=== PATIENT | female | born 1995 | race Caucasian/White ===

== ENCOUNTER 2018-10-22 16:53 | Emergency (ER) | payer BC ==
[2018-10-22 17:10] VITALS: BP 137/66
--- NOTE | 2018-10-22 17:34 | UC ---
Eye Complaint HPI - HPI Summary HPI Summary: Awoke with right eye drainage and redness. Congestion, sore throat and cough as well. Some sinus pain. Does have allergies. - History of Current Complaint Chief Complaint: UCEye Stated Complaint: EYE COMPLAINT Hx Obtained From: Patient Hx Last Menstrual Period: 10/11/18 ?: No Onset/Duration: Sudden Onset, Lasting Days - 1, Worse Since - onset Timing: Constant Severity Initially: Mild Severity Currently: Moderate Pain Intensity: 0 Character: Foreign Body Sensation Aggravating Factor(s): Blinking Associated Signs And Symptoms: Positive: Drainage (Purulent). Negative: Photophobia, Vision Impairment Right, Vision Impairment Left - Risk Factors Penetrating Injury Risk Factor: Negative - Allergies/Home Medications Allergies/Adverse Reactions: Allergies Allergy/AdvReac Type Severity Reaction Status Date / Time Sulfa (Sulfonamide Allergy Hives Verified 10/22/18 17:10 Antibiotics) PMH/Surg Hx/FS Hx/Imm Hx Previously Healthy: Yes Other Respiratory History: Allergic rhinitis - Surgical History Surgical History: Yes Surgery Procedure, Year, and Place: T&A 2004 - Family History Known Family History: Negative: Cardiac Disease - Social History Occupation: Student Lives: Dormitory/Roommates Alcohol Use: Occasionally Substance Use Type: None Smoking Status (MU): Never Smoked Tobacco - Immunization History Most Recent Influenza Vaccination: 2012 Vaccination Up to Date: Yes Review of Systems All Other Systems Reviewed And Are Negative: Yes Eyes: Positive: Drainage, Eye Redness ENT: Positive: Sore Throat, Sinus Pain/Tenderness Respiratory: Positive: Cough Physical Exam Triage Information Reviewed: Yes Appearance: No Pain Distress, Well-Nourished, Ill-Appearing - mild Vital Signs: Initial Vital Signs Temp 98.2 F 10/22/18 17:06 Pulse 65 10/22/18 17:06 Resp 18 10/22/18 17:06 BP 137/66 10/22/18 17:06 Pulse Ox 100 10/22/18 17:06 Vital Signs Reviewed: Yes Eyes: Positive: Conjunctiva Inflamed - OD, Discharge - OD ENT: Positive: Pharynx normal, Nasal congestion - allergic rhinitis, TMs normal Neck exam: Normal Respiratory: Positive: Wheezing - expiratory wheezes with coughing Cardiovascular Exam: Normal Musculoskeletal Exam: Normal Neurological Exam: Normal Psychological Exam: Normal Skin Exam: Normal Eye Complaint Course/Dx - Differential Dx/Diagnosis Differential Diagnosis/HQI/PQRI: Conjunctivitis, Keratitis, Periorbital Cellulitis, Uveitis Provider Diagnosis: Conjunctivitis, Upper respiratory infection, acute, Bronchospasm, acute Discharge - Sign-Out/Discharge Documenting (check all that apply): Patient Departure All imaging exams completed and their final reports reviewed: No Studies - Discharge Plan Condition: Stable Disposition: HOME Prescriptions: Erythromycin OPTH OINT* [Erythromycin 0.5% OPTH OINT*] 1 applic RIGHT EYE TID # 1 ophth.oint predniSONE TAB* [Deltasone 20 MG TAB*] 60 mg PO DAILY #18 tab Patient Education Materials: Conjunctivitis (ED), Bronchospasm (ED), Upper Respiratory Infection (ED) Referrals: Asuncion Brooks MD [Primary Care Provider] - Additional Instructions: NEILMED SINUS RINSE: CHECK OUT AT [facility] Saline nasal wash helps with mucous, allergies and congestion. It can be used up to twice a day or only as needed. Use lukewarm tap water. It does not have to be sterilized or distilled water. Do 1/3 on each side and snort out of both nostrils. Repeat the process with 1/6 of the bottle on each side with snorting in between to finish the solution in the bottle EYE OINTMENT USE: Wash hands. Place 1/4" strip across tip of finger. Pull lower lid down with the index finger and stabilize the ointment finger with the middle finger and scrape the ointment off on the lid. Pull the lid out and let go as you look down. NASAL SPRAYS AND DROPS: Afrin in the PUMP/ MIST bottle (Get generic 12 hours nasal decongestant spray). Tilt your head down and look at the floor while doing a strong sniff with the spray. Decongestant nasal sprays and drops often give dramatic relief from congestion. They are often recommended for patients with sinus infection to assist with sinus drainage. Persons with high blood pressure should consult the doctor before using these nasal sprays. Afrin and Oren-Synephrine are common [id number] preparations. They should not be used for more than five days, as "rebound" congestion can occur - - the congestion flares as the drug wears off. A way of dealing with this rebound congestion problem is to medicate only one nostril each time, allowing the other nostril to recover from the medicine' s effects. When you no longer need the drug during the day, spray only one nostril each night. This helps you sleep well without severe rebound congestion. Call the doctor if you develop severe headache, palpitations, or chest pain. - Billing Disposition and Condition Condition: STABLE Disposition: Home
== END 2018-10-22 17:40 | disposition home or self-care (01) ==
LOC: UCCORT 16:53
DX: J06.9 Acute upper respiratory infection, unspecified (principal); J98.01 Acute bronchospasm; Z88.2 Allergy status to sulfonamides
CPT/HCPCS: 99202; G0463